=== PATIENT | male | born 1965 | race Caucasian/White ===

== ENCOUNTER 2020-12-10 19:21 | Emergency (ER) | payer MEDICARE ==
[~2020-12-10 19:21] MED LIST: ACTOS30 MG PO; AMARYL4 MG PO; ECOTRIN81 MG PO; GLUCOPHAGE1000 MG PO; LEVOFLOXACIN500 MG PO; LOPRESSOR50 MG PO; PROTONIX40 MG PO
[2020-12-10 22:11] LABS: HEMOGLOBIN 15.6 gm/dl (14.0-17.5); RED BLOOD COUNT 5.02 M/UL (4.20-5.50); WHITE BLOOD COUNT 11.2 K/UL (4.5-11.0)
[2020-12-10 23:03] LABS: BUN/CREATININE RATIO 29 (0-10)
[2020-12-11] MEDS ORDERED: OMNICEF 300 MG300 MG PO (03:36)
[2020-12-11] MEDS ORDERED: ZOFRAN4 MG PO (03:36)
[2020-12-11] MEDS ORDERED: FLOMAX 0.4 MG0.4 MG PO (03:36)
[2020-12-11] MEDS ORDERED: PERCOCET 5/325 T1 EA PO (04:00)
== END 2020-12-11 04:00 | disposition home or self-care (01) ==
LOC: ER1 19:21
PROVIDERS: Family Medicine
DX: N13.6 Pyonephrosis (principal); E11.9 Type 2 diabetes mellitus without complications; K21.9 Gastro-esophageal reflux disease without esophagitis
CPT/HCPCS: 36415; 80053; 81001; 83605; 83690; 85025; 93005; 96365; 96375; 96376; 99284; J0696; J1170; J2270; J2405; J7030; Q9967

== ENCOUNTER 2021-11-30 10:46 | Inpatient (IN) | payer MEDICARE ==
[~2021-11-30] VITALS: Ht 175.3 cm; Wt 122.5 kg
[~2021-11-30 10:46] MED LIST changes: +FLOMAX 0.4 MG0.4 MG PO; +OMNICEF 300 MG300 MG PO; +PERCOCET 5/325 T1 EA PO; +ZOFRAN4 MG PO
[2021-11-30 12:04] LABS: HEMOGLOBIN 14.2 gm/dl (14.0-17.5); RED BLOOD COUNT 4.69 M/UL (4.20-5.50)
[2021-11-30 12:42] LABS: BUN/CREATININE RATIO 15 (0-10)
[2021-11-30] MEDS ORDERED: SIMVASTATIN20 MG PO (14:58)
[2021-12-01 03:40] LABS: RED BLOOD COUNT 4.36 M/UL (4.20-5.50)
[2021-12-01 03:50] LABS: WHITE BLOOD COUNT 3.8 K/UL (4.5-11.0)
[2021-12-01 03:58] LABS: BUN/CREATININE RATIO 26 (0-10)
[2021-12-03 02:38] LABS: HEMOGLOBIN 12.6 gm/dl (14.0-17.5); RED BLOOD COUNT 4.23 M/UL (4.20-5.50)
[2021-12-03 02:49] LABS: WHITE BLOOD COUNT 8.5 K/UL (4.5-11.0)
[2021-12-03 03:14] LABS: BUN/CREATININE RATIO 33 (0-10)
[2021-12-04 07:17] LABS: HEMOGLOBIN 13.2 gm/dl (14.0-17.5); RED BLOOD COUNT 4.45 M/UL (4.20-5.50); WHITE BLOOD COUNT 8.1 K/UL (4.5-11.0)
[2021-12-04 07:35] LABS: BUN/CREATININE RATIO 23 (0-10)
--- NOTE | 2021-12-04 09:06 | NUR ---
0900 02 Sat 95% on room air.
[2021-12-04] MEDS ORDERED: PROVENTIL HFA6.7 GM INH (14:19)
== END 2021-12-04 18:06 | disposition home or self-care (01) | DRG 177 ==
LOC: ER1 10:46 → CDU 13:17 → M/S 13:17
PROVIDERS: Internal Medicine Infectious Disease; Nurse Practitioner; ADMIT Internal Medicine
PROC: 8E0ZXY6 Isolation (ICD-10-PCS; principal; 2021-11-30)
PROC: 3E0333Z Introduction of Anti-inflammatory into Peripheral Vein, Percutaneous Approach (ICD-10-PCS; 2021-11-30)
PROC: XW033E5 Introduction of Remdesivir Anti-infective into Peripheral Vein, Percutaneous Approach, New Technology Group 5 (ICD-10-PCS; 2021-11-30)
DX: U07.1 COVID-19 (principal); J12.82 Pneumonia due to coronavirus disease 2019; J96.01 Acute respiratory failure with hypoxia; N39.0 Urinary tract infection, site not specified; J44.0 Chronic obstructive pulmonary disease with (acute) lower respiratory infection; I11.0 Hypertensive heart disease with heart failure; I50.9 Heart failure, unspecified; E11.65 Type 2 diabetes mellitus with hyperglycemia; T38.0X5A Adverse effect of glucocorticoids and synthetic analogues, initial encounter; E66.9 Obesity, unspecified; Z82.49 Family history of ischemic heart disease and other diseases of the circulatory system; Z83.3 Family history of diabetes mellitus; Z79.82 Long term (current) use of aspirin; I25.2 Old myocardial infarction; Z68.39 Body mass index [BMI] 39.0-39.9, adult
CPT/HCPCS: 0240U; 36415; 36600; 71045; 80048; 80053; 81001; 82550; 82553; 82803; 82962; 83605; 83735; 83874; 83880; 84484; 85025; 85652; 86140; 93005; 94640; 94664; 94760; 96374; 96375; 99285; J0248; J0696; J1100; J1650; J7030